=== PATIENT | female | born 2000 | race Caucasian/White ===

== ENCOUNTER 2022-08-31 13:03 | Emergency (ER) | payer MEDICAID ==
[~2022-08-31] VITALS: Ht 167.6 cm; Wt 113.0 kg
[~2022-08-31 13:03] MED LIST: IBUP-2029 MT
[2022-08-31] MEDS ORDERED: IBUPROFEN 400MG TABLET PO ONE (14:45)
[2022-08-31] MEDS ORDERED: ACETAMINOPHEN 325MG TABLET PO ONE (14:45)
[2022-08-31 14:59] VITALS: BP 116/82
[2022-08-31] MEDS ORDERED: IBUP-2028 MT (16:46)
[2022-08-31] MEDS ORDERED: ACET-2708 MT (16:46)
== END 2022-08-31 17:26 | disposition home or self-care (01) ==
LOC: ER 13:03
DX: S82.831A Other fracture of upper and lower end of right fibula, initial encounter for closed fracture (principal); S92.314A Nondisplaced fracture of first metatarsal bone, right foot, initial encounter for closed fracture; W01.0XXA Fall on same level from slipping, tripping and stumbling without subsequent striking against object, initial encounter; Y93.89 Activity, other specified; Y92.89 Other specified places as the place of occurrence of the external cause
CPT/HCPCS: 29515; 73610; 73630; 81025; 99284